=== PATIENT | male | born 1945 | race Caucasian/White ===

== ENCOUNTER 2017-03-03 09:13 | Emergency (ER) | payer OTHER ==
[2017-03-03] MEDS ORDERED: NS 1,000 ML IV ONE (09:42)
--- NOTE | 2017-03-03 09:49 | EDPHY ---
H & P Stated Complaint: periumbilical pain, constipation, body aches x 3 days, fatigue Time Seen by Provider: 03/03/17 09:20 HPI/ROS: CHIEF COMPLAINT: Abdominal pain, constipation, slight headache, feeling feverish HISTORY OF PRESENT ILLNESS: The patient presents to the ED with increasing abdominal pain, symptoms of constipation, slight headache and feeling fevers. The patient's symptoms have been progressing over the past several days. The patient has no prior history of inflammatory bowel disease or diverticulitis. Last colonoscopy was 5 years ago and demonstrated only benign polyps. The patient did have some blood in his stool today. The patient takes no blood thinners. Past medical history significant only for hyperlipidemia. The patient currently rates his pain as a 6/10. REVIEW OF SYSTEMS: A comprehensive 10 point review of systems is otherwise negative aside from elements mentioned in the history of present illness. Source: Patient Exam Limitations: No limitations - Personal History Current Tetanus/Diphtheria Vaccine: Unsure Current Tetanus Diphtheria and Acellular Pertussis (TDAP): Unsure Tetanus Vaccine Date: 2013 - Medical/Surgical History Hx Asthma: No Hx Chronic Respiratory Disease: No Hx Diabetes: No Hx Cardiac Disease: No Hx Renal Disease: No Hx Cirrhosis: No Hx Alcoholism: No Hx HIV/AIDS: No Hx Splenectomy or Spleen Trauma: No Other PMH: DVT, enlarged prostate, high cholesterol. - Social History Smoking Status: Never smoked - Physical Exam Exam: General Appearance: Alert, no distress Eyes: Pupils equal and round no pallor or injection ENT, Mouth: Mucous membranes moist Respiratory: There are no retractions, lungs are clear to auscultation Cardiovascular: Regular rate and rhythm Gastrointestinal: Tenderness to palpation noted in the right and left lower quadrant Neurological: A&O, normal motor function, normal sensory exam, normal cranial nerves Skin: Warm and dry, no rashes Musculoskeletal: Neck is supple nontender Extremities: symmetrical, full range of motion Constitutional: Initial Vital Signs Temperature (C) 36.7 C 03/03/17 09:16 Heart Rate 58 L 03/03/17 09:16 Respiratory Rate 16 03/03/17 09:16 Blood Pressure 119/76 03/03/17 09:16 O2 Sat (%) 97 03/03/17 09:16 O2 Delivery Mode Nasal Cannula O2 (L/minute) 2 Allergies/Adverse Reactions: oxycodone Allergy (Intermediate, Verified 05/20/16 19:07) Rash Home Medications: Medication Instructions Recorded Lipitor 05/20/16 Hydrocodone/APAP 5/325 [[place] 1 - 2 each PO Q6 PRN #20 tab 03/03/17 5/325] Ondansetron Odt [Zofran Odt] 4 mg PO Q4PRN PRN #20 tab 03/03/17 levOFLOXACIN [Levaquin] 500 mg PO DAILY #10 tab 03/03/17 metroNIDAZOLE [Flagyl 500 mg (RX)] 500 mg PO TID #30 tab 03/03/17 Medical Decision Making ED Course/Re-evaluation: The patient presents to the emergency department complaints of abdominal pain. The patient was noted to have tenderness to palpation in his left lower quadrant. He has a slight leukocytosis. The patient was taken for CT scan of the abdomen pelvis which demonstrates uncomplicated diverticulitis. Patient does have some nonspecific rectal thickening. The patient received IV Levaquin and oral Flagyl. The patient is well-appearing without evidence of peritonitis. He would like to participate in outpatient therapy. He will be discharged home with prescriptions for Levaquin and Flagyl. The patient is also given antiemetics and pain medications. The patient is advised to return to the emergency department for severe abdominal pain, fever, vomiting or other concerns. He will have liquids and soft mechanical diet. He plans to follow up at [facility] for a repeat colonoscopy in 1 week. Differential Diagnosis: Differential diagnosis considered includes appendicitis, diverticulitis, perforation, obstruction - Data Points Laboratory Results: Laboratory Results 03/03/17 09:35 03/03/17 09:35 03/03/17 03/03/17 03/03/17 09:46 09:35 09:35 WBC RBC Hgb POC Hgb 15.6 gm/dL gm/dL (13.7-17.5) Hct POC Hct 46 % % (40-51) MCV MCH MCHC RDW Plt Count MPV Neut % (Auto) Lymph % (Auto) [place] % (Auto) Eos % (Auto) Baso % (Auto) Nucleat RBC Rel Count Absolute Neuts (auto) Absolute Lymphs (auto) Absolute Monos (auto) Absolute Eos (auto) Absolute Basos (auto) Absolute Nucleated RBC Immature Gran % Immature Gran # POC Sodium 139 mEq/L mEq/L (134-144) Sodium 139 mEq/L mEq/L (134-144) POC Potassium 3.7 mEq/L mEq/L (3.3-5.0) Potassium 4.1 mEq/L mEq/L (3.5-5.2) POC Chloride 103 mEq/L mEq/L (97-110) Chloride 101 mEq/L mEq/L (97-110) Carbon Dioxide 26 mEq/l mEq/l (22-31) Anion Gap 12 mEq/L mEq/L (8-16) POC BUN 11 mg/dL mg/dL (7-23) BUN 12 mg/dL mg/dL (7-23) Creatinine 1.0 mg/dL mg/dL (0.7-1.3) POC Creatinine 0.8 mg/dL mg/dL (0.7-1.3) Estimated GFR > 60 Glucose 92 mg/dL mg/dL (70-100) POC Glucose 98 mg/dL mg/dL (70-100) Calcium 9.9 mg/dL mg/dL (8.5-10.4) Total Bilirubin 2.1 mg/dL H mg/dL (0.1-1.4) Conjugated Bilirubin 0.4 mg/dL mg/dL (0.0-0.5) Unconjugated Bilirubin 1.7 mg/dL H mg/dL (0.0-1.1) AST 25 IU/L IU/L (17-59) ALT 31 IU/L IU/L (21-72) Alkaline Phosphatase 74 IU/L IU/L (38-126) Total Protein 7.0 g/dL g/dL (6.3-8.2) Albumin 4.1 g/dL g/dL (3.5-5.0) Lipase 80.0 IU/L IU/L (23-300) Urine Color YELLOW Urine Appearance CLEAR Urine pH 7.0 (5.0-7.5) Ur Specific [place] 1.008 (1.002-1.030) Urine Protein NEGATIVE (NEGATIVE) Urine Ketones NEGATIVE (NEGATIVE) Urine Blood NEGATIVE (NEGATIVE) Urine Nitrate NEGATIVE (NEGATIVE) Urine Bilirubin NEGATIVE (NEGATIVE) Urine Urobilinogen NEGATIVE EU EU (0.2-1.0) Ur Leukocyte Esterase NEGATIVE (NEGATIVE) Urine Glucose NEGATIVE (NEGATIVE) 03/03/17 09:35 WBC 13.24 10^3/uL H 10^3/uL (3.80-9.50) RBC 4.97 10^6/uL 10^6/uL (4.40-6.38) Hgb 16.0 g/dL g/dL (13.7-17.5) POC Hgb Hct 46.9 % % (40.0-51.0) POC Hct MCV 94.4 fL fL (81.5-99.8) MCH 32.2 pg pg (27.9-34.1) MCHC 34.1 g/dL g/dL (32.4-36.7) RDW 13.3 % % (11.5-15.2) Plt Count 194 10^3/uL 10^3/uL (150-400) MPV 10.3 fL fL (8.7-11.7) Neut % (Auto) 79.0 % H % (39.3-74.2) Lymph % (Auto) 12.2 % L % (15.0-45.0) [place] % (Auto) 7.4 % % (4.5-13.0) Eos % (Auto) 0.5 % L % (0.6-7.6) Baso % (Auto) 0.5 % % (0.3-1.7) Nucleat RBC Rel Count 0.0 % % (0.0-0.2) Absolute Neuts (auto) 10.47 10^3/uL H 10^3/uL (1.70-6.50) Absolute Lymphs (auto) 1.62 10^3/uL 10^3/uL (1.00-3.00) Absolute Monos (auto) 0.98 10^3/uL H 10^3/uL (0.30-0.80) Absolute Eos (auto) 0.06 10^3/uL 10^3/uL (0.03-0.40) Absolute Basos (auto) 0.06 10^3/uL 10^3/uL (0.02-0.10) Absolute Nucleated RBC 0.00 10^3/uL 10^3/uL (0-0.01) Immature Gran % 0.4 % % (0.0-1.1) Immature Gran # 0.05 10^3/uL 10^3/uL (0.00-0.10) POC Sodium Sodium POC Potassium Potassium POC Chloride Chloride Carbon Dioxide Anion Gap POC BUN BUN Creatinine POC Creatinine Estimated GFR Glucose POC Glucose Calcium Total Bilirubin Conjugated Bilirubin Unconjugated Bilirubin AST ALT Alkaline Phosphatase Total Protein Albumin Lipase Urine Color Urine Appearance Urine pH Ur Specific [place] Urine Protein Urine Ketones Urine Blood Urine Nitrate Urine Bilirubin Urine Urobilinogen Ur Leukocyte Esterase Urine Glucose Medications Given: Levofloxacin/Dextrose (Levaquin 750 Mg (Premix)) 150 mls @ 100 mls/hr IV EDNOW ONE PRN Reason: Protocol Stop: 03/03/17 12:59 Last Admin: 03/03/17 11:38 Dose: 150 mls Discontinued Medications Sodium Chloride (Ns) 1,000 mls @ 0 mls/hr IV EDNOW ONE; Wide Open PRN Reason: Protocol Stop: 03/03/17 09:43 Last Admin: 03/03/17 10:01 Dose: 1,000 mls Metronidazole (Flagyl) 500 mg PO EDNOW ONE PRN Reason: Protocol Stop: 03/03/17 11:31 Last Admin: 03/03/17 11:39 Dose: 500 mg Morphine Sulfate (Morphine) 4 mg IVP EDNOW ONE Stop: 03/03/17 09:43 Last Admin: 03/03/17 10:02 Dose: 4 mg Point of Care Test Results: 03/03/17 09:46 POC Sodium 139 POC Potassium 3.7 POC Chloride 103 POC BUN 11 POC Creatinine 0.8 POC Glucose 98 Departure - Departure Disposition: Home, Routine, Self-Care Clinical Impression: Acute diverticulitis Condition: Good Instructions: Diverticulitis (ED) Additional Instructions: 1. Please take antibiotics as directed for next 10 days. 2. Please use Zofran as needed for nausea. [place] as needed for pain. 3. Please return to the emergency department for severe pain, vomiting, fever or other concerns. 4. Please follow-up with your hearing instrument specialist at [facility] as scheduled next week. You will need a repeat colonoscopy for evaluation of your diverticulitis Referrals: ELIAS,UNKNOWN [Other] - As per Instructions
[2017-03-03] MEDS ORDERED: IOPAMIDOL (ISOVUE-300) 100 ML BTL ONE (10:29)
[2017-03-03 10:55] LABS: % IMMATURE GRANULYOCYTES 0.4 % (0.0-1.1); ABSOLUTE IMMATURE GRANULOCYTES 0.05 10^3/uL (0.00-0.10); ADD DIFF? NO; ADD MORPH? NO; ADD SCAN? NO; ATYPICAL LYMPHOCYTE FLAG 0 (0-99); FRAGMENT RBC FLAG 0 (0-99); HEMATOCRIT 46.9 % (40.0-51.0); LEFT SHIFT FLG 0 (0-99); LIPEMIA HEMOLYSIS FLAG 90 (0-99); MEAN CELL HEMOGLOBIN 32.2 pg (27.9-34.1); MEAN CELL HEMOGLOBIN CONCENTR. 34.1 g/dL (32.4-36.7); MEAN CELL VOLUME 94.4 fL (81.5-99.8); MEAN PLATELET VOLUME 10.3 fL (8.7-11.7); PLATELET CLUMPS FLAG 0 (0-99); PLATELET COUNT 194 10^3/uL (150-400); RED BLOOD CELL COUNT 4.97 10^6/uL (4.40-6.38); RED CELL DISTRIBUTION WIDTH 13.3 % (11.5-15.2)
[2017-03-03 11:01] LABS: ALANINE AMINOTRANSFERASE 31 IU/L (21-72); ALBUMIN 4.1 g/dL (3.5-5.0); ALKALINE PHOSPHATASE 74 IU/L (38-126); ANION GAP 12 mEq/L (8-16); ASPARTATE AMINOTRANSFERASE 25 IU/L (17-59); BILIRUBIN,TOTAL 2.1 mg/dL (0.1-1.4); BILIRUBIN-CONJUGATED 0.4 mg/dL (0.0-0.5); BILIRUBIN-UNCONJUGATED 1.7 mg/dL (0.0-1.1); CALCIUM 9.9 mg/dL (8.5-10.4); CARBON DIOXIDE 26 mEq/l (22-31); CHLORIDE 101 mEq/L (97-110); GLOMERULAR FILTRATION RATE > 60; GLUCOSE 92 mg/dL (70-100); POTASSIUM 4.1 mEq/L (3.5-5.2); SODIUM 139 mEq/L (134-144)
[2017-03-03 11:03] LABS: COLOR YELLOW; LEUKOCYTE ESTERASE,URINE NEGATIVE (NEGATIVE); NITRITE,URINE NEGATIVE (NEGATIVE)
[2017-03-03] MEDS ORDERED: metroNIDAZOLE 500 MG TAB PO ONE (11:30)
[2017-03-03 13:07] VITALS: BP 110/73; PULSE 52; RESP 14; TEMP 97.3; O2SAT 98
== END 2017-03-03 13:20 | disposition home or self-care (01) ==
DX: K57.92 Diverticulitis of intestine, part unspecified, without perforation or abscess without bleeding (principal); E86.9 Volume depletion, unspecified
CPT/HCPCS: 74177; 96361; 96365; 96375; 99285; J1956; Q9967; 82947-QW